=== PATIENT | male | born 2000 | race Caucasian/White ===

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

== ENCOUNTER 2019-01-01 11:24 | Emergency (ER) | payer MEDICAID | END 2019-01-01 12:29 | disposition home or self-care (01) | LOC: FTE 11:24 | DX: Z48.01 Encounter for change or removal of surgical wound dressing (principal) | CPT/HCPCS: 99281; Z7502 ==